=== PATIENT | male | born 1995 | race Caucasian/White ===

== ENCOUNTER 2022-04-28 06:59 | Day surgery (SDC) | payer BC, SELFPAY ==
[2022-04-28] VITALS (11 sets, daily range): BP systolic 112–137; BP diastolic 76–96; PULSE 52–63; RESP 12–16; TEMP 36.6–36.9; O2SAT 97–100; BMI 22.8
[2022-04-28] MEDS: LACTATED RINGERS 1000 ML 1,000 ML 100 ML IV (07:30)
[2022-04-28] MEDS: SODIUM CHLORIDE 0.9 % (FLUSH) 10 ML SYRINGE IVF (07:31)
--- NOTE | 2022-04-28 07:32 | SUR.PREOP ---
patient did a home covid antigen test on 04/27 around 1000 and took a picture of the result. I visualized 1 line present on the test indicating a negative test.
[2022-04-28] MEDS: CEFAZOLIN 2 GM in 0.9 % SODIUM CHLORIDE Mini-bag 100 ML IVPB (08:40)
--- NOTE | 2022-04-28 09:24 | PM.ORPRC ---
Procedure Note Date of procedure: 04/28/22 Procedure: PREOPERATIVE DIAGNOSIS: 1. Left clavicle retained deep implant, symptomatic POSTOPERATIVE DIAGNOSIS: 1. Left clavicle retained deep implant, symptomatic PROCEDURE: 1. Left clavicle removal of retained deep implant (clavicle plate and multiple screws performed by different surgeon at an outside institution) 2. Left clavicle Excisional debridement including bone from prior screw holes SURGEON: Willam Fabian MD. SPECIFICATION WRITER: Ghulam Millard PA-C - Of note, an customer service assistant was critical for this case to aid in patient positioning, tissue retraction, limb manipulation/positioning, patient safety, & closure. ANESTHESIA: General endotracheal anesthetic EBL: Less than 50 mL IMPLANTS: None TOURNIQUET: None COMPLICATIONS: None evident INDICATIONS: The patient is a pleasant 26-year-old male who sustained a left midshaft clavicle fracture in the past. He underwent ORIF with plate and screws at an outside institution by different surgeon. This went on to heal uneventfully. He has a very thin individual and the hardware has remained very prominent. This is difficult when he strap something over shoulder such as a backpack. This is become painful and does affect his regular/common activities. As such, surgery is indicated for deep implant removal. DESCRIPTION OF PROCEDURE: Following a thorough discussion of risks, benefits, and alternatives consent was obtained and the operative extremity was marked. The patient was brought to the operating room and placed supine on the operating table. 2 g IV Ancef were administered within 1 hour incision preoperatively. Proper time-out was performed identifying proper patient, site, and procedure. The operative extremity was prepped and draped in the appropriate sterile fashion using ChloraPrep. The limb was exsanguinated and the tourniquet inflated. The previous scar was visualized for the clavicle ORIF on the left. This scar was reopened through the same site. Sharp incision through skin and subcutaneous tissue allowed us to me identify the clavicle plate and screws. The he had no muscular/fascial repair overlying the plate itself. 3 medial screws with a hex head were identified and 5 lateral screws with a T7 head were identified. We were able to remove all the screws uneventfully. The plate was then freed from the bone and removed EN bloc. Thorough irrigation normal saline was performed. The previous screw holes were debrided with a combination rongeur and curette and finally a rasp to smooth off where the screw holes had protruded through the plate as well as the edge of the plate to bone interface. Thorough irrigation again performed. Local anesthetic with 0.5% Marcaine plain was then administered in addition to that which was administered just prior to incision. Total 20 mL utilized. At this stage, closure was performed with 3-0 Vicryl and 4-0 Monocryl. Soft dressings were applied, and the patient was awoken/transferred to the recovery room in stable condition. PLAN: 1. Encourage elevation of the operative extremity. 2. Range of motion of the operative extremity/digits as tolerated. 3. Ibuprofen, acetaminophen and/or the hydrocodone that was previously supplied which he still has some left over as needed for pain. 4. Follow up with PA visit in 12-16 days for wound check and suture removal.
[2022-04-28] MEDS: BUPIVACAINE 0.5% 30 ML INJECTION (09:26)
--- NOTE | 2022-04-28 09:55 | W.ANESCHARGE ---
Anesthesia Charges Start Date/Time Anesthesia Start Date: 04/28/22 Anesthesia Start Time: 08:35 Stop Date/Time Anesthesia Stop Date: 04/28/22 Anesthesia Stop Time: 09:52 Summary Emergency: No
--- NOTE | 2022-04-28 10:12 | W.ANESCHARGE ---
Anesthesia Charges Start Date/Time Anesthesia Start Date: 04/28/22 Anesthesia Start Time: 08:35 Stop Date/Time Anesthesia Stop Date: 04/28/22 Anesthesia Stop Time: 09:52 Summary Emergency: No
== END 2022-04-28 11:27 | disposition home or self-care (01) ==
PROVIDERS: Visit Provider Orthopaedic Surgery Sports Medicine
PROC: (CPT 20680; principal; 2022-04-28 08:15)
DX: T84.84XA Pain due to internal orthopedic prosthetic devices, implants and grafts, initial encounter (principal)
CPT/HCPCS: 20680; 11044; 01630; J0330; J0690; J1100; J1885; J2405; J2704; J2710; J3010; J3490; J7120